=== PATIENT | male | born 1970 | race Caucasian/White ===

== ENCOUNTER 2018-08-14 13:14 | Emergency (ER) | payer OTHER, SELFPAY ==
[2018-08-14 13:16] VITALS: BP 126/81; PULSE 116; RESP 16; TEMP 36.7; BMI 26.2
--- NOTE | 2018-08-14 13:22 | RAD_ITS ---
STUDY: X-RAY - RIGHT WRIST REASON FOR EXAM: Male, 47 years old. Continued pain after feeling a pop in wrist today. TECHNIQUE: 3 view(s) of the wrist were obtained. COMPARISON: None. FINDINGS: Normal visualized distal radius. 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 Normal radiocarpal articulation. Normal distal radioulnar articulation. Normal carpal bones. Normal carpal articulations. Normal carpometacarpal articulation of the thumb. Normal second through fifth carpometacarpal articulations. Normal visualized metacarpal bones. The soft tissue structures are unremarkable. There is no demonstrated acute fracture. 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 Electronically Signed: Gómez Hooker MD at 13:48 EDT , Service support ,
[2018-08-14] MEDS: Naproxen 500 MG Tablet PO (13:28)
--- NOTE | 2018-08-14 13:29 | ED.DCSUM_ITS ---
- ER Visit Summary Date of Service: 08/14/18 Chief Complaint: Right wrist pain History of Present Illness: The patient is a 47 M who has right wrist pain. Patient was lifting boxes at work when he felt a pop in his wrist. He has pain over the distal part of the wrist. Is worse with movement. He took no medications for it. He has a previous fracture in the right arm over 14 years ago. Physical Examination: Patient has tenderness to palpation of the distal radius on the right-hand side. He has decreased range of motion secondary to the pain. Pulses and sensation are intact. Test Results: Right wrist x-ray reveals a chronic ulnar styloid fracture with no evidence of any acute fractures Emergency Department Course and Treatment: Patient was given naproxen here. He will continue NSAIDs at home. I will give him a wrist splint. Worker's Compensation forms were filled out. Treatment Plan: [] Disposition: Discharge Impression: Right wrist sprain This note was generated with [employer] dictation software. It may contain incorrect words, spelling, and punctuation that were not noted in review of the chart prior to signing ED Disposition - Plan for ED Patient: Referrals: [facility] Doctor,Out of [NON-STAFF] -
--- NOTE | 2018-08-14 14:13 | ED.DEP ---
ED Disposition - Plan for ED Patient: Disposition: Home or Assisted Living Instructions: ED Sprain Wrist Referrals: [facility],Out of [NON-STAFF] - [facility] -
== END 2018-08-14 14:44 | disposition home or self-care (01) ==
PROVIDERS: Emergency Provider Emergency Medicine
DX: S63.501A Unspecified sprain of right wrist, initial encounter (principal); X50.9XXA Other and unspecified overexertion or strenuous movements or postures, initial encounter; Y93.9 Activity, unspecified; Y92.9 Unspecified place or not applicable
CPT/HCPCS: 73110; 99283